=== PATIENT | male | born 1985 | race Caucasian/White ===

== ENCOUNTER 2016-10-09 18:40 | Emergency (ER) | payer MEDICAID, OTHER ==
[~2016-10-09] VITALS: Ht 185.4 cm; Wt 85.2 kg
[~2016-10-09 18:40] MED LIST: ALB0.5V INH; ALBU8.5H4 IH; ALBU8.5H6; ALBU8.5H6 IH; ALPR0.25 PO; AZIT250T5 PO; AZTH250C PO; CLIN-79 PO; CPR500T PO; DOXY100T41 PO; DUONEB 0.5 MG-33 ML IH; ERYT250C61 PO; FEXO60TA; FLUT1DIS2 IH; HYDR-3702 PO; HYDR-3754 GT; HYDR-3754 PO; HYDR-707 PO; METH10TA3 PO; METH4TAB27 PO; MUPI15CR TP; ONDAN4ODT PO; ONDN4T PO; PRCD5U PO; PRED20TA PO; PRM25T PO; QTP25T PO; SULF1TAB35 PO; TRAZ100T92 PO; TRIA16.5 NS; TRM50T PO
--- OUTSIDE RECORDS SUMMARY | 2016-10-09 18:44 | XMS REPORT | Continuity of Care Document ---
Author Author [facility] Organization [facility] Address Unknown Phone Unavailable Support Name Relationship Address Phone AARON JAMES MD Caregiver [address] [place] [phone] CHRISTINE ALLEN Next Of Kin [address] [place] [address] Insurance Providers Payer Name Policy Number Subscriber Name Relationship Self Pay Salas Lozano 18 Self / Same As Patient Chief Complaint and Reason for Visit Chief Complaint Respiratory Complaint Reason for Visit [id number] Problems Medical Problems Problem Onset Date Status Chronic pain 11/29/2011 Active Hand pain 12/15/2011 Active Polyp of nasal sinus 01/02/2012 Resolved Chronic sinusitis 01/02/2012 Active Pruritic rash 04/04/2012 Resolved Acute upper respiratory infection 11/27/2012 Resolved Bladder pain 11/27/2012 Resolved Nausea and vomiting 12/30/2012 Resolved Frontal sinusitis 01/30/2013 Resolved Nasal discharge 01/30/2013 Resolved Upper respiratory infection 01/30/2013 Resolved Bronchitis Unknown Resolved Asthma ~11/07/2013 Resolved Angioedema ~11/10/2013 Active Pain in hand Unknown Active Cellulitis of right hand ~01/18/2014 Active Contusion of right hand Unknown Active Otitis media ~04/07/2014 Active Headache ~04/07/2014 Active Asthma Unknown Active Upper respiratory infection Unknown Active Asthma exacerbation Unknown Active Medications Medication Dose Route Sig Days/Qty Instructions Order Date Discontinued Date Status Methylphenidate Hcl 50 Mg ORAL DIRECTED 11/06/11 11/27/12 Discontinued Alprazolam 0.25 Mg ORAL prn 11/06/11 11/27/12 Discontinued Hydrocodone Bit/Acetaminophen 1 Tab GT EVERY 4HRS PRN 15 Qty 11/06/11 11/06/12 Discontinued Erythromycin Base 250 Mg ORAL FOUR TIMES DAILY 7 Days 11/06/11 Discontinued Albuterol Sulfate 11/29/11 01/30/13 Discontinued Fexofenadine Hcl 11/29/11 11/27/12 Discontinued Hydrocodone Bit/Acetaminophen 1 Each ORAL EVERY 4HRS PRN 15 Qty 11/06/12 Discontinued Tramadol Hcl 50 Mg ORAL EVERY 6 HOURS 15 Qty 12/15/11 01/30/13 Discontinued Trazodone Hcl 100 Mg ORAL BEDTIME 01/01/12 11/07/13 Discontinued Prednisone 20 Mg ORAL TWICE A DAY 10 Qty 01/01/12 01/01/12 Discontinued Triamcinolone Acetonide 16.5 Gm NS TWICE A DAY 1 Qty 01/01/12 Discontinued Mupirocin Calcium 0.25 Gm TOPICAL EVERY 6 HOURS 7 Days 04/04/12 Discontinued Doxycycline Hyclate 1 Tab ORAL TWICE A DAY 30 Qty 11/27/12 01/30/13 Discontinued Albuterol Sulfate 2 Puff RESPIRATORY (INHALATION) FOUR TIMES DAILY 1 Qty 11/27/12 Active Ondansetron Hcl 4 Mg ORAL EVERY 4HRS 10 Qty 12/28/12 01/30/13 Discontinued Doxycycline Hyclate 1 Tab ORAL TWICE A DAY 30 Qty 01/30/13 11/07/13 Discontinued Hydrocodone Bit/Acetaminophen 1 Tab ORAL Q 4H PRN 10 Qty Pain 01/30/13 11/07/13 Discontinued Methylprednisolone 21 Tab ORAL DAILY 1 Qty 01/30/13 11/07/13 Discontinued Azithromycin 2 Tab.sa ORAL DAILY 6 Qty 07/31/13 11/07/13 Discontinued Albuterol Sulfate 8.5 Gm RESPIRATORY (INHALATION) FOUR TIMES DAILY 1 Qty 07/31/13 11/07/13 Discontinued Promethazine/Codeine 5 Ml ORAL EVERY 6 HOURS PRN COUGH 60 Qty 07/31/13 11/07/13 Discontinued Fluticasone/Salmeterol 1 Each RESPIRATORY (INHALATION) TWICE A DAY 30 Days 11/07/13 Active Albuterol Sulfate 8.5 Gm RESPIRATORY (INHALATION) EVERY 4HRS PRN WHEEZING 1 Qty 11/07/13 Active Methylprednisolone 21 Tab ORAL ONCE 1 Qty 11/07/13 01/18/14 Discontinued Clindamycin Hcl 300 Mg ORAL EVERY 6 HOURS 30 Qty 01/18/14 04/08/14 Discontinued Sulfamethoxazole/Trimethoprim 1 Each ORAL TWICE A DAY 7 Days 04/08/14 09/05/14 Discontinued Promethazine Hcl 25 Mg ORAL EVERY 8HRS PRN PAIN 6 Qty 04/08/14 Discontinued Prednisone 3 Tab ORAL DAILY 5 Days 06/04/14 09/05/14 Discontinued Azithromycin 250 Mg ORAL DAILY 4 Qty 06/04/14 09/05/14 Discontinued Prednisone 20 Mg ORAL TWICE A DAY 10 Qty 09/05/14 Active Social History No social history. Hospital Discharge Instructions No hospital discharge instructions. Plan of Care Discharge Date 09/05/14 11:35pm Disposition 01 HOME OR SELF-CARE Condition at Discharge Stable Instructions/Education Provided Asthma (ED) Prescriptions See Medications Section Additional Instructions/Education Prednisone 20 mg twice daily for 5 days Albuterol inhaler 1-2 puffs every 4-6 hours as needed Establish with a primary provider for asthma care - there are medications to take meterman that can help you have much better control of your asthma [facility] is a clinic that is taking new patients. [phone] Return if symptoms worsen Some of your test results may not be complete prior to your leaving the Emergency Department. The Emergency Department is not authorized to give test results over the phone. Please contact the doctor's office listed in this packet of information for your final results. Follow up with your primary care physician or return to the Emergency Department for worsening or worrisome symptoms. * Emergency Department phone number: [phone], x [phone]* MEDICAL RECORD If you need copies of your X-rays, call [phone]. If you need copies of your medical record, including lab results, a signed authorization for release of records will be required. A telephone call for release of Health Information is not allowed. BILLING Billing can sometimes be confusing and frustrating. To help avoid confusion in the future, please take a moment to acquaint yourself with the billing parties for services. SERVICE BILLING [facility] Emergency Room Services [facility] Physician Services [facility] X-rays [facility] Patients will receive bills for services from the appropriate provider. If you have any questions about your [facility] bill, our staff will be happy to assist you. Please call [phone], and ask for the billing department. THANK YOU for choosing [facility] as your emergency care provider! Functional Status No functional status results. Allergies, Adverse Reactions, Alerts Allergen Type Severity Reaction Status Last Updated diphenhydramine HCl Allergy Mild Active 11/06/11 Penicillin Allergy Unknown Anaphylaxis Active 11/07/13 Morphine Allergy Intermediate Active 11/06/11 Acetaminophen Allergy Unknown Active 11/07/13 Ibuprofen Allergy Unknown Active 11/07/13 Cefaclor Allergy Intermediate Active 11/06/11 Immunizations No immunization records. Vital Signs Acute Vital Signs Vital Response Date/Time Temperature (Fahrenheit) 98.9 Pulse 103 bpm Respirations 20 Height 6 ft 1 in Weight 180 lb Body Mass Index 23.0 kg/m^2 Results Test Source Date Result Interp. Ref. Range Comments Group A Streptococcus Culture Throat November 27, 2012 11:45am Procedures No known history of procedures. Encounters Encounter Location Date/Time Departed Emergency Room [facility] 09/05/14 10:24pm Recent Diagnosis
--- OUTSIDE RECORDS SUMMARY | 2016-10-09 18:48 | XMS REPORT | Continuity of Care Document ---
Author Author [facility] Organization [facility] Address Unknown Phone Unavailable Support Name Relationship Address Phone AARON JAMES MD Caregiver [address] [place] [phone] CHRIST[place] ALLEN Next Of Kin [address] [place] [address] Insurance Providers Payer Name Policy Number Subscriber Name Relationship Self Pay Salas Lozano 18 Self / Same As Patient Chief Complaint and Reason for Visit Chief Complaint Respiratory Complaint Reason for Visit [id number] Problems Medical Problems Problem Onset Date Status [...] care - there are medications to take lobsterman that can help you have much better control of your asthma [facility] is a clinic that is taking new patients. [phone] Return if symptoms worsen Some of your [...] worrisome symptoms. * Emergency Department phone number: [phone], x [phone]* MEDICAL RECORD If you need copies of your X-rays, call [phone] x [phone]. If you need copies of [...] the billing parties for services. SERVICE BILLING [facility] Emergency Room Services [facility] Physician Services [facility] X-rays [place] [facility] Patients will receive bills for services from the appropriate provider. If you have any questions about your [facility] bill, our staff will be happy to assist you. Please call [phone], and ask for the billing department. THANK YOU for choosing [facility] as your emergency care provider! Functional Status [...] Encounters Encounter Location Date/Time Departed Emergency Room [facility] 09/05/14 10:24pm Recent Diagnosis
[2016-10-09] MEDS ORDERED: SODIUM CHLORIDE FLUSH 10 ML SYR IV PRN (19:15)
[2016-10-09] MEDS ORDERED: HYDROmorphone 1 MG/ML (DILAUDID) SYRINGE IV ONE (19:15)
[2016-10-09] MEDS ORDERED: ONDANSETRON 2 MG/ML (Z0FRAN) 2 ML VIAL IV ONE (19:15)
[2016-10-09] MEDS ORDERED: SODIUM CHLORIDE FLUSH 3 ML SYR IV PRN (19:15)
[2016-10-09 19:32] LABS: BASOPHILS % (AUTO) 1 % (0-2); EOSINOPHILS # (AUTO) 0.1 10^3uL; EOSINOPHILS % (AUTO) 1 % (0-4); LYMPHOCYTES # (AUTO) 2.3 X10^3; MEAN CORPUSCULAR HEMOGLOBIN 29.4 PG (26.0-34.0); MEAN CORPUSCULAR HGB CONC 33.2 g/dL (31.0-37.0); MEAN CORPUSCULAR VOLUME 89 FL (80-100); MEAN PLATELET VOLUME 10.6 FL (6.0-9.5); MONOCYTES # (AUTO) 0.5 X10^3; MONOCYTES % (AUTO) 8 % (3-11); NEUTROPHILS # (AUTO) 3.4 X10^3; NEUTROPHILS % (AUTO) 54 % (51-67); PLATELET COUNT 235 10^3uL (150-450); WHITE BLOOD COUNT 6.32 10^3uL (4.0-11.0)
[2016-10-09 19:44] LABS: ALBUMIN 5.2 g/dL (3.4-5.0); ALKALINE PHOSPHATASE 51 U/L (38-126); AMYLASE* 98 U/L (25-115); ANION GAP 21.1 MEQ/L (3-15); BUN/CREATININE RATIO 22 (10-20); LIPASE* 179 U/L (23-300); TOTAL PROTEIN 9.2 g/dL (6.4-8.5)
[2016-10-09 20:19] LABS: BILIRUBIN,URINE Negative (Negative); CLARITY,URINE Clear; COLOR,URINE Yellow; GLUCOSE, URINE (UA) Negative (Negative); LEUKOCYTE ESTERASE ,URINE Negative (Negative); PH,URINE 5.5 (5.0 - 8.0); UROBILINOGEN,URINE 0.2 mg/dL (0.2-1.0)
[2016-10-09 20:37] LABS: RBC,URINE 0-2 /HPF; URINE CENTRIFUGED VOLUME 12 mL
[2016-10-09] MEDS ORDERED: ED- oxyCODONE/ACETAMINOPHEN 5MG-325MG (PERCOCET) 8 TABLETS/BTL PO ONE (20:45)
[2016-10-09] MEDS ORDERED: DOXYCYCLINE 100 MG (VIBRAMYCIN) TABLET PO ONE (20:45)
--- NOTE | 2016-10-09 20:46 | Diagnostic Imaging Report ---
INDICATION: Abdominal pain. 3 views were obtained. FINDINGS: The heart size is normal. The lungs are clear. There is no pleural effusion or pneumothorax. The mediastinum is unremarkable. The bowel gas pattern is nonspecific. There is no free air. There are no abdominal calcifications. IMPRESSION: No acute cardiopulmonary abnormality. Nonspecific bowel gas pattern. Dictated by: Dictated on workstation # [id number]
[2016-10-09] MEDS ORDERED: DOXY100C42 PO ×2 (20:59→22:10)
[2016-10-09 22:49] LABS: GC-CHLAMYDIA SOURCE URINE; N.gonorrhoeae SOURCE URINE
[2016-10-10 01:34] VITALS: BP 106/80
== END 2016-10-09 21:20 | disposition home or self-care (01) ==
LOC: ED 18:43
DX: N28.89 Other specified disorders of kidney and ureter (principal); Z11.4 Encounter for screening for human immunodeficiency virus [HIV]
CPT/HCPCS: 36415; 74022; 80053; 80178; 81003; 81015; 82150; 83690; 85025; 86140; 87491; 87591; 96361; 96374; 96375; 99284; A9270; G0433; J1170; J2405; J7030; 99283

== ENCOUNTER 2016-10-15 23:24 | Emergency (ER) | payer MEDICAID, OTHER ==
[~2016-10-15] VITALS: Ht 185.4 cm; Wt 84.0 kg
[~2016-10-15 23:24] MED LIST changes: +DOXY100C42 PO
--- OUTSIDE RECORDS SUMMARY | 2016-10-15 23:28 | XMS REPORT | Continuity of Care Document ---
Author Author [facility] Organization [facility] Address Unknown Phone Unavailable Support Name Relationship Address Phone AARON JAMES MD Caregiver [address] [place] [phone] [place]ST[place] ALLEN Next Of Kin [address] [place] [address] Insurance Providers Payer Name Policy Number Subscriber Name Relationship Self Pay Salas Lozano 18 Self / Same As Patient Chief Complaint and Reason for Visit Chief Complaint Respiratory Complaint Reason for Visit [id number] Problems Medical Problems Problem Onset Date Status [...] care - there are medications to take terminologist that can help you have much better control of your asthma [facility] is a clinic that is taking new patients. [phone] Return if symptoms worsen Some of your [...] worrisome symptoms. * Emergency Department phone number: [phone], x [phone]* MEDICAL RECORD If you need copies of your X-rays, call [phone] x [phone]. If you need copies of [...] services. SERVICE BILLING [facility] Emergency Room Services [facility] Physician Services [facility] X-rays [facility] Patients will receive bills for services from the appropriate provider. If you have any questions about your [facility] bill, our staff will be happy to assist you. Please call [phone], and ask for the billing department. THANK YOU for choosing [facility] as your emergency care provider! Functional Status [...] Encounters Encounter Location Date/Time Departed Emergency Room [facility] 09/05/14 10:24pm Recent Diagnosis
--- OUTSIDE RECORDS SUMMARY | 2016-10-15 23:30 | XMS REPORT | Continuity of Care Document ---
Author Author [facility] Organization [facility] Address Unknown Phone Unavailable Support Name Relationship Address Phone AARON JAMES MD Caregiver [address] [place] [phone] [place]RIST[place] ALLEN Next Of Kin [address] [place] [address] Insurance Providers Payer Name Policy Number Subscriber Name Relationship Self Pay Salas Lozano 18 Self / Same As Patient Chief Complaint and Reason for Visit Chief Complaint Respiratory Complaint Reason for Visit [id number] Problems Medical Problems Problem Onset Date Status [...] care - there are medications to take superintendent container terminal that can help you have much better control of your asthma [facility] is a clinic that is taking new patients. [phone] Return if symptoms worsen Some of your [...] worrisome symptoms. * Emergency Department phone number: [phone], x [phone]* MEDICAL RECORD If you need copies of your X-rays, call [phone] x [phone]. If you need copies of [...] the billing parties for services. SERVICE BILLING LIBERTARIAN Emergency Room Services [facility] Physician Services [facility] X-rays [place] [facility] Patients will receive bills for services from the appropriate provider. If you have any questions about your [facility] bill, our staff will be happy to assist you. Please call [phone], and ask for the billing department. THANK YOU for choosing [facility] as your emergency care provider! Functional [...] Encounters Encounter Location Date/Time Departed Emergency Room [facility] 09/05/14 10:24pm Recent Diagnosis
[2016-10-16] MEDS ORDERED: LIDOCAINE 2% VISCOUS 20ML UDC PO ONE (00:28)
[2016-10-16] MEDS ORDERED: BELLADONNA/PHENOBARBITAL ELIXIR (DONNATAL) 10 ML UDC ONE (00:28)
[2016-10-16] MEDS ORDERED: MAG HYDROX/AL HYDROX/SIMETH 400-400-40/5 ML (MAG-AL PLUS XS) 30 ML UDC ONE (00:28)
[2016-10-16] MEDS ORDERED: FAMOTIDINE 20 MG (PEPCID) TABLET PO ONE (00:30)
[2016-10-16] MEDS ORDERED: GI COCKTAIL 55 ML UDC PO ONE (00:30)
[2016-10-16] MEDS ORDERED: VILA20TA PO (00:36)
[2016-10-16] MEDS ORDERED: OXYC1TAB87 PO (00:36)
[2016-10-16] MEDS ORDERED: LTH150C PO (00:37)
[2016-10-16] MEDS ORDERED: oxyCODONE/ACETAMINOPHEN 5MG-325 MG (PERCOCET) TABLET PO ONE (01:05)
[2016-10-16 01:14] VITALS: BP 126/58
== END 2016-10-16 01:16 | disposition home or self-care (01) ==
LOC: ED 23:26
DX: K21.9 Gastro-esophageal reflux disease without esophagitis (principal); R10.13 Epigastric pain
CPT/HCPCS: 99282; A9270